=== PATIENT | female | born 1995 | race Caucasian/White ===

== ENCOUNTER 2016-05-03 18:12 | Emergency (ER) | payer BC ==
[2016-05-03 18:18] VITALS: RESP 18; O2SAT 98
[2016-05-03] MEDS ORDERED: HYDROmorphONE/DILAUDID 1 MG/ML SYR IVP ONE (18:33)
[2016-05-03] MEDS ORDERED: NS 1,000 ML IV ONE (18:33)
[2016-05-03] MEDS ORDERED: DEXAMETHASONE 10 MG/ML VIAL IVP ONE (18:33)
[2016-05-03] MEDS ORDERED: METOCLOPRAMIDE 10 MG/2 ML VIAL IVP ONE (18:33)
--- NOTE | 2016-05-03 18:36 | EDPHY ---
H & P Stated Complaint: H/A x 1 wk; no injury; thinks she has a migraine but no hx Time Seen by Provider: 05/03/16 18:25 HPI/ROS: CHIEF COMPLAINT: Headache, vomiting HISTORY OF PRESENT ILLNESS: The patient is a 20-year-old female who comes to the emergency department complaining of a headache for the last week. She states that it developed Monday after she had been exercising. It began as vision changes and bright flashing lights. That resolved and then she developed the worst headache of her life. It has waxed and waned since that time. Her dad is a physician and prescribed her Imitrex. This seemed to help a small degree. She has also been taking ibuprofen. She has had mild tension headaches in the past but never a migraine. She does not have any focal weakness numbness or paresthesias. She is ambulating without difficulty. She denies any head trauma. She denies any fevers or infections. She denies neck stiffness. She denies risk of . REVIEW OF SYSTEMS: Constitutional: denies: chills, fever, recent illness, recent injury EENTM: denies: blurred vision, double vision, nose congestion Respiratory: denies: cough, shortness of breath Cardiac: denies: chest pain, irregular heart rate, lightheadedness, palpitations Gastrointestinal/Abdominal: denies: abdominal pain, diarrhea, nausea, vomiting, blood streaked stools Genitourinary: denies: dysuria, frequency, hematuria, pain Musculoskeletal: denies: joint pain, muscle pain Skin: denies: lesions, rash, jaundice, bruising Neurological: See HPI Hematologic/Lymphatic: denies: blood clots, easy bleeding, easy bruising Immunologic/allergic: denies: HIV/AIDS, transplant EXAM: GENERAL: Well-appearing, well-nourished and in no acute distress. HEAD: Atraumatic, normocephalic. EYES: Pupils equal round and reactive to light, extraocular movements intact, sclera anicteric, conjunctiva are normal. ENT: TMs normal, nares patent, oropharynx clear without exudates. Moist mucous membranes. NECK: Normal range of motion, supple without lymphadenopathy or JVD. LUNGS: Breath sounds clear to auscultation bilaterally and equal. No wheezes rales or rhonchi. HEART: Regular rate and rhythm without murmurs, rubs or gallops. ABDOMEN: Soft, nontender, normoactive bowel sounds. No guarding, no rebound. No masses appreciated. BACK: No CVA tenderness, no spinal tenderness, step-offs or deformities EXTREMITIES: Normal range of motion, no pitting or edema. No clubbing or cyanosis. NEUROLOGICAL: Cranial nerves II through XII grossly intact. Normal speech, normal gait. 5/5 strength, normal movement in all extremities, normal sensation PSYCH: Normal mood, normal affect. SKIN: Warm, dry, normal turgor, no visible rashes or lesions. Source: Patient Exam Limitations: No limitations - Personal History LMP (Females 10-55): 15-21 Days Ago Current Tetanus Diphtheria and Acellular Pertussis (TDAP): Yes - Medical/Surgical History Hx Asthma: No Hx Chronic Respiratory Disease: No Hx Diabetes: No Hx Cardiac Disease: No Hx Renal Disease: No Hx Cirrhosis: No Hx Alcoholism: No - Family History Significant Family History: Hypertension - Social History Smoking Status: Never smoked Alcohol Use: Sober Drug Use: None Constitutional: Initial Vital Signs Temperature (C) 36.4 C 05/03/16 18:14 Heart Rate 83 05/03/16 18:14 Respiratory Rate 18 05/03/16 18:14 Blood Pressure 139/94 H 05/03/16 18:14 O2 Sat (%) 98 05/03/16 18:14 O2 Delivery Mode Room Air Allergies/Adverse Reactions: No Known Allergies Allergy (Unverified 05/03/16 18:18) Home Medications: Medication Instructions Recorded Control Pills 05/03/16 Metoclopramide [Reglan 10 mg tab 10 mg PO BID PRN #10 tab 05/03/16 (RX)] SUMAtriptan [Imitrex 25 MG (*)] 25 mg PO 05/03/16 Medical Decision Making - Diagnostics Imaging: Results: CT scan of the head was obtained. The results of the study are negative. The study was read by Dr. Cruz Castillo. I viewed the images myself on the PACS system. ED Course/Re-evaluation: 8:15 p.m. the patient's headache is completely resolved. She is eager to go home. She declines further workup or testing. We discussed the CT results and she is relieved. [facility] will [facility] and with our neurologist. We discussed indications for returning. I do not feel that lumbar puncture is indicated considering the duration and improvement of her symptoms overall. Discussed this and she agrees to return if her symptoms worsen. Differential Diagnosis: Partial list of the Differential diagnosis considered include but were not limited to; migraine, tension headache and although unlikely based on the history and physical exam, I also considered tumor, aneurysm, hemorrhage, infection. I discussed these differential diagnoses and the plan with the patient as well as the usual and expected course. The patient understands that the diagnosis is provisional and that in medicine we are not always correct and that further workup is often warranted. Usual and customary warnings were given. All of the patient's questions were answered. The patient was instructed to return to the emergency department should the symptoms at all worsen or return, otherwise to followup with the physician as we discussed. - Data Points Medications Given: Discontinued Medications Dexamethasone (Decadron Injection) 10 mg IVP EDNOW ONE Stop: 05/03/16 18:34 Last Admin: 05/03/16 19:20 Dose: 10 mg Diphenhydramine HCl (Benadryl Injection) 25 mg IVP EDNOW ONE Stop: 05/03/16 18:34 Last Admin: 05/03/16 19:20 Dose: 25 mg Hydromorphone HCl (Dilaudid) 1 mg IVP EDNOW ONE Stop: 05/03/16 18:34 Last Admin: 05/03/16 19:20 Dose: Not Given Sodium Chloride (Ns) 1,000 mls @ 0 mls/hr IV ONCE ONE PRN Reason: Wide Open Stop: 05/03/16 18:34 Last Admin: 05/03/16 19:21 Dose: 1,000 mls Metoclopramide HCl (Reglan Injection) 10 mg IVP EDNOW ONE Stop: 05/03/16 18:34 Last Admin: 05/03/16 19:21 Dose: 10 mg Departure - Departure Disposition: Home, Routine, Self-Care Clinical Impression: Migraine headache Qualifiers: Migraine type: with aura Status migrainosus presence: without status migrainosus Intractability: not intractable Qualified Code(s): G43.109 - Migraine with aura, not intractable, without status migrainosus Condition: Fair Instructions: Migraine Headache (ED) Referrals: TONY BARTON [Other] - As per Instructions Prescriptions: Metoclopramide [Reglan 10 mg tab (RX)] 10 mg PO BID PRN #10 tab PRN Reason: Headache
[2016-05-03 20:31] VITALS: BP 114/71; PULSE 74; TEMP 98.8
== END 2016-05-03 20:30 | disposition home or self-care (01) ==
DX: G43.109 Migraine with aura, not intractable, without status migrainosus (principal)
CPT/HCPCS: 96374; J1200; J2765